=== PATIENT | male | born 1940 | race Caucasian/White ===

== ENCOUNTER 2022-11-06 05:59 | Emergency (ER) | payer MEDICARE, OTHER ==
[~2022-11-06] VITALS: Ht 188 cm; Wt 109.1 kg
[~2022-11-06 05:59] MED LIST: CYAN100070 PO; ESCI10TA PO; FLO0.4C PO; GINK120C PO; KRIL500C PO; MULT-1085 PO
[2022-11-06] MEDS ORDERED: levetiracetam inj 1,000 MG in normal saline 100ml IV soln 90 ML IV ONE (06:25)
[2022-11-06] MEDS ORDERED: levetiracetam inj 1,000 MG in normal saline 100ml IV soln 100 ML IV ONE (06:30)
[2022-11-06] MEDS ORDERED: cephalexin 250mg capsule PO ONE (06:35)
--- NOTE | 2022-11-06 06:35 | NUR ---
RN CALLED PHARM AND SAÚL SHAH BE PREPARED AND DELIVERED. [facility]ARM WILL DELIVER.
--- NOTE | 2022-11-06 06:43 | NUR ---
SEIZURE PADS APPLIED TO DAVID.
--- NOTE | 2022-11-06 06:52 | NUR ---
PT HAD 15CC serosanguineous OUTPUT FROM ESHA DRAIN.
[2022-11-06 08:12] LABS: BASOPHILS % (AUTO) 0.6 % (0-1); EOSINOPHILS # (AUTO) 0.2 X10'3 (0-0.9); EOSINOPHILS % (AUTO) 3.3 % (0-6); HEMATOCRIT 35.2 % (42.0-52.0); HEMOGLOBIN 11.9 g/dl (14.0-17.9); LYMPHOCYTES # (AUTO) 0.8 X10'3 (1.1-4.8); LYMPHOCYTES % (AUTO) 11.1 % (21-51); MEAN CORPUSCULAR HEMOGLOBIN 31.3 PG (27.0-31.0); MEAN CORPUSCULAR HGB CONC 33.8 g/dL (33.0-36.5); MEAN CORPUSCULAR VOLUME 92.8 FL (78-98); MEAN PLATELET VOLUME 7.4 FL (7.4-10.4); MONOCYTES # (AUTO) 0.5 X10'3 (0-0.9); MONOCYTES % (AUTO) 7.7 % (2-12); NEUTROPHILS # (AUTO) 5.2 X10'3 (1.8-7.7); NEUTROPHILS % (AUTO) 77.3 % (42-75); PLATELET COUNT 326 X10'3 (140-440); RED BLOOD COUNT 3.79 X10'6 (4.70-6.10); RED CELL DISTRIBUTION WIDTH 13.6 % (11.5-14.5); WHITE BLOOD COUNT 6.8 X10'3 (4.5-11.0)
[2022-11-06 08:15] LABS: CLARITY,URINE CLOUDY (Clear); COLOR,URINE RED (Yellow); GLUCOSE, URINE NEGATIVE (Neg); KETONES,URINE NEGATIVE (Neg); LEUKOCYTE ESTERASE ,URINE NEGATIVE (Neg); NITRITES, URINE NEGATIVE (Neg); OCCULT BLOOD,URINE LARGE (Neg); PROTEIN,URINE TRACE mg/dl (Neg); UROBILINOGEN,URINE 0.2 E.U/dL (0.2-1.0)
[2022-11-06 08:20] LABS: UA COLLECTION TYPE STRAIGHT CATH
[2022-11-06 08:22] LABS: RBC,URINE TNTC /HPF (0-2)
[2022-11-06 08:24] LABS: BACTERIA,URINE FEW /HPF (Neg); MUCUS STRANDS NONE SEEN /LPF (Neg); SQUAMOUS EPITHELIAL CELL,UR FEW /LPF (FEW)
[2022-11-06 08:26] LABS: ALANINE AMINOTRANSFERASE 26 U/L (12-78); ALBUMIN 2.3 G/DL (3.4-5.0); ALBUMIN/GLOBULIN RATIO 0.7 (1.1-1.5); ALKALINE PHOSPHATASE 69 IU/L (46-116); ANION GAP 4 (8-16); ASPARTATE AMINO TRANSFERASE 41 U/L (10-37); BILIRUBIN,TOTAL 0.3 MG/DL (0.1-1.0); BLOOD UREA NITROGEN 21 MG/DL (7-18); BUN/CREATININE RATIO 19.1 (10.0-20.0); CALCIUM 9.5 MG/DL (8.5-10.1); CHLORIDE 105 MMOL/L (99-107); GLUCOSE 114 MG/DL (70-104); LIPASE 78 U/L (73-393); MAGNESIUM 1.9 MG/DL (1.5-2.4); POTASSIUM 4.1 MMOL/L (3.5-5.1); SODIUM 141 MMOL/L (135-145); TOTAL CARBON DIOXIDE 31.9 MMOL/L (24-32); TOTAL PROTEIN 5.8 G/DL (6.4-8.2); eGFR 64 ML/MIN
[2022-11-06 08:39] LABS: PLATELET ESTIMATE NORMAL; TOTAL CELLS COUNTED 100
--- NOTE | 2022-11-06 08:42 | NUR ---
pt taken to ct.
--- NOTE | 2022-11-06 09:27 | NUR ---
RN CALLED REPORT TO [facility]. PER LIBERTAD THERE IS NO MD THERE TO REEVAL FOR CONT OF SEIZURE MEDS BUT SHE CAN CALL THE TYPE PHOTOGRAPHY SUPERVISOR MD TO HAVE SOMETHING ORD.
--- NOTE | 2022-11-06 09:28 | NUR ---
SY WILL BE TRANSPORTING THE PT AT 1100. RN WILL LEAVE IV IN PLACE UNTIL THAT TIME.
--- NOTE | 2022-11-06 09:37 | NUR ---
RN REQ WORK ORDER FOR SCANNER IN PT RM NOT WORKING.
[2022-11-06 10:20] VITALS: BP 125/82
== END 2022-11-06 10:15 | disposition home or self-care (01) ==
LOC: ER 06:00
DX: R31.9 Hematuria, unspecified (principal); G40.909 Epilepsy, unspecified, not intractable, without status epilepticus; E11.9 Type 2 diabetes mellitus without complications
CPT/HCPCS: 36415; 70450; 80053; 81001; 83690; 83735; 84484; 85007; 85025; 87088; 96374; 99285; J1953; J3490

== ENCOUNTER 2022-11-19 16:08 | Emergency (ER) | payer MEDICARE, OTHER ==
[~2022-11-19] VITALS: Ht 188 cm; Wt 127.3 kg
[2022-11-19 16:33] LABS: BASOPHILS % (AUTO) 0.5 % (0-1); EOSINOPHILS # (AUTO) 0.1 X10'3 (0-0.9); EOSINOPHILS % (AUTO) 1.1 % (0-6); HEMATOCRIT 37.6 % (42.0-52.0); HEMOGLOBIN 12.3 g/dl (14.0-17.9); LYMPHOCYTES # (AUTO) 1.2 X10'3 (1.1-4.8); LYMPHOCYTES % (AUTO) 20.5 % (21-51); MEAN CORPUSCULAR HEMOGLOBIN 29.9 PG (27.0-31.0); MEAN CORPUSCULAR HGB CONC 32.7 g/dL (33.0-36.5); MEAN CORPUSCULAR VOLUME 91.3 FL (78-98); MEAN PLATELET VOLUME 7.7 FL (7.4-10.4); MONOCYTES # (AUTO) 0.8 X10'3 (0-0.9); MONOCYTES % (AUTO) 13.9 % (2-12); NEUTROPHILS # (AUTO) 3.8 X10'3 (1.8-7.7); PLATELET COUNT 279 X10'3 (140-440); RED BLOOD COUNT 4.12 X10'6 (4.70-6.10); RED CELL DISTRIBUTION WIDTH 13.5 % (11.5-14.5); WHITE BLOOD COUNT 5.9 X10'3 (4.5-11.0)
[2022-11-19 16:54] LABS: ALANINE AMINOTRANSFERASE 15 U/L (12-78); ALBUMIN 2.6 G/DL (3.4-5.0); ALBUMIN/GLOBULIN RATIO 0.6 (1.1-1.5); ALKALINE PHOSPHATASE 81 IU/L (46-116); ANION GAP 8 (8-16); ASPARTATE AMINO TRANSFERASE 18 U/L (10-37); BILIRUBIN,TOTAL 0.3 MG/DL (0.1-1.0); BLOOD UREA NITROGEN 41 MG/DL (7-18); BUN/CREATININE RATIO 22.3 (10.0-20.0); CALCIUM 8.8 MG/DL (8.5-10.1); CHLORIDE 104 MMOL/L (99-107); CREATININE 1.84 MG/DL (0.60-1.10); GLUCOSE 113 MG/DL (70-104); POTASSIUM 3.5 MMOL/L (3.5-5.1); SODIUM 137 MMOL/L (135-145); TOTAL PROTEIN 7.2 G/DL (6.4-8.2); eGFR 35 ML/MIN
[2022-11-19 16:58] VITALS: BP 133/72
== END 2022-11-19 17:59 | disposition home or self-care (01) ==
LOC: ER 16:09
DX: R09.02 Hypoxemia (principal); E11.9 Type 2 diabetes mellitus without complications; N18.9 Chronic kidney disease, unspecified
CPT/HCPCS: 36415; 80053; 85025; 99283

== ENCOUNTER 2023-09-23 13:40 | Inpatient (IN) | payer MEDICARE, OTHER ==
[~2023-09-23] VITALS: Ht 185.4 cm; Wt 110.0 kg
[2023-09-23 15:29] LABS: BASOPHILS % (AUTO) 0.2 % (0-1); EOSINOPHILS # (AUTO) 0.2 X10'3 (0-0.9); EOSINOPHILS % (AUTO) 2.6 % (0-6); HEMATOCRIT 31.2 % (42.0-52.0); HEMOGLOBIN 10.2 g/dl (14.0-17.9); LYMPHOCYTES % (AUTO) 13.8 % (21-51); MEAN CORPUSCULAR HGB CONC 32.9 g/dL (33.0-36.5); MEAN CORPUSCULAR VOLUME 88.3 FL (78-98); MONOCYTES # (AUTO) 0.8 X10'3 (0-0.9); MONOCYTES % (AUTO) 11.3 % (2-12); NEUTROPHILS # (AUTO) 5.1 X10'3 (1.8-7.7); NEUTROPHILS % (AUTO) 72.1 % (42-75); PLATELET COUNT 240 X10'3 (140-440); RED BLOOD COUNT 3.53 X10'6 (4.70-6.10); RED CELL DISTRIBUTION WIDTH 15.4 % (11.5-14.5)
[2023-09-23 15:42] LABS: ALBUMIN 2.1 G/DL (3.4-5.0); ANION GAP 9 (8-16); BLOOD UREA NITROGEN 22 MG/DL (7-18); BUN/CREATININE RATIO 22.7 (10.0-20.0); CALCIUM 8.8 MG/DL (8.5-10.1); CHLORIDE 103 MMOL/L (99-107); CREATININE 0.97 MG/DL (0.60-1.10); GLUCOSE 113 MG/DL (70-104); MAGNESIUM 2.1 MG/DL (1.5-2.4); POTASSIUM 3.2 MMOL/L (3.5-5.1); SODIUM 135 MMOL/L (135-145); TOTAL CARBON DIOXIDE 22.9 MMOL/L (24-32); eCRCL 64 ML/MIN; eGFR 74 ML/MIN
[2023-09-23] MEDS: piperacillin/tazo 3.375gm/50ml 50 ML IV ONE (15:53)
[2023-09-23] MEDS ORDERED: iohexol 300mg/ml 100ml inj. ONE (16:40)
[2023-09-23 16:51] LABS: UA COLLECTION TYPE NON-SPECIFIED
[2023-09-23 16:53] LABS: CLARITY,URINE CLOUDY (Clear); COLOR,URINE YELLOW (Yellow)
[2023-09-23 16:54] LABS: GLUCOSE, URINE NEGATIVE (Neg); KETONES,URINE NEGATIVE (Neg); NITRITES, URINE POSITIVE (Neg); OCCULT BLOOD,URINE MODERATE (Neg); PROTEIN,URINE 30 mg/dl (Neg)
[2023-09-23 16:55] LABS: BILIRUBIN,URINE NEGATIVE (Neg); LEUKOCYTE ESTERASE ,URINE LARGE (Neg); UROBILINOGEN,URINE 0.2 E.U/dL (0.2-1.0)
[2023-09-23 16:58] LABS: SQUAMOUS EPITHELIAL CELL,UR NONE SEEN /LPF (FEW)
[2023-09-23 16:59] LABS: BACTERIA,URINE 3+ /HPF (Neg); WBC,URINE TNTC /HPF (0-4)
[2023-09-23] MEDS ORDERED: temazepam 15mg capsule PO PRN (21:00)
[2023-09-23] MEDS ORDERED: HYDROmorphone/PF 0.2 MG/ML SYRINGE IV PRN (21:35)
[2023-09-23] MEDS ORDERED: potassium Cl 40MEQ/1/2NS 520ml 520 ML IV PRN (21:35)
[2023-09-23] MEDS ORDERED: ondansetron/PF 4mg/2ml inj IV PRN (21:35)
[2023-09-23] MEDS ORDERED: acetaminophen 325mg tablet PO PRN (21:35)
[2023-09-23] MEDS ORDERED: HYDROmorphone inj. 0.5 MG/0.5 ML DISP.SYRIN IV PRN (21:35)
[2023-09-23] MEDS ORDERED: magnesium 4gm in 100ml NS 100 ML IV PRN (21:35)
[2023-09-23] MEDS ORDERED: magnesium 2GM in 50ml NS 50 ML IV PRN (21:35)
[2023-09-23] MEDS ORDERED: magnesium Cl slow-release 64mg tablet PO PRN (21:35)
[2023-09-23] MEDS ORDERED: magnesium hydroxide 30ml (MOM) UD suspension PO PRN (21:35)
[2023-09-23] MEDS ORDERED: potassium Cl 20 mEq SR tablet PO PRN (21:35)
[2023-09-23] MEDS ORDERED: mag hydrox/Alum hydrox/simeth 30ml oral suspension PO PRN (21:35)
[2023-09-23 22:03] LABS: C-REACTIVE PROTEIN 11.78 MG/DL (0.0-0.5)
[2023-09-23] MEDS: normal saline 1000ml 1,000 ML IV SCH (22:11)
[2023-09-23] MEDS ORDERED: iohexol 350MG/ML 100ml bottle IV ONE (23:00)
[2023-09-24] MEDS: piperacillin/tazo 3.375gm/50ml 50 ML IV SCH (00:49)
[2023-09-24] MEDS: PERFLUTREN PROTEIN-A MICROSPHR (Optison) 0.22 MG/ML 3ML VIAL IV ONE (07:45)
[2023-09-24] MEDS ORDERED: CefTRIAXone/D5W-Rocephin 1gm 50 ML IV SCH (08:00)
[2023-09-24] MEDS: K and/or MAG REPLACEMENT MC SCH (08:00)
[2023-09-24] MEDS: potassium Cl 20 mEq SR tablet PO PRN (08:52)
[2023-09-24] MEDS: multivitamins, therapeutics tablet PO SCH (08:52)
[2023-09-24] MEDS: heparin, porcine 5000 units/ml vial SQ SCH (08:53)
[2023-09-24 09:02] LABS: BASOPHILS % (AUTO) 0.3 % (0-1); EOSINOPHILS # (AUTO) 0.1 X10'3 (0-0.9); EOSINOPHILS % (AUTO) 2.6 % (0-6); HEMATOCRIT 32.6 % (42.0-52.0); HEMOGLOBIN 10.7 g/dl (14.0-17.9); LYMPHOCYTES # (AUTO) 0.9 X10'3 (1.1-4.8); LYMPHOCYTES % (AUTO) 16.5 % (21-51); MEAN CORPUSCULAR HEMOGLOBIN 29.3 PG (27.0-31.0); MEAN CORPUSCULAR VOLUME 88.8 FL (78-98); MEAN PLATELET VOLUME 7.1 FL (7.4-10.4); MONOCYTES # (AUTO) 0.6 X10'3 (0-0.9); MONOCYTES % (AUTO) 11.2 % (2-12); NEUTROPHILS % (AUTO) 69.4 % (42-75); PLATELET COUNT 265 X10'3 (140-440); RED BLOOD COUNT 3.67 X10'6 (4.70-6.10); RED CELL DISTRIBUTION WIDTH 15.2 % (11.5-14.5); WHITE BLOOD COUNT 5.7 X10'3 (4.5-11.0)
[2023-09-24 09:28] LABS: ALANINE AMINOTRANSFERASE 18 U/L (12-78); ALBUMIN 2.1 G/DL (3.4-5.0); ALBUMIN/GLOBULIN RATIO 0.4 (1.1-1.5); ALKALINE PHOSPHATASE 58 IU/L (46-116); ANION GAP 10 (8-16); ASPARTATE AMINO TRANSFERASE 13 U/L (10-37); BILIRUBIN,TOTAL 0.3 MG/DL (0.1-1.0); CALCIUM 9.2 MG/DL (8.5-10.1); CHLORIDE 106 MMOL/L (99-107); CREATININE 1.14 MG/DL (0.60-1.10); GLUCOSE 102 MG/DL (70-104); MAGNESIUM 2.2 MG/DL (1.5-2.4); POTASSIUM 3.2 MMOL/L (3.5-5.1); SODIUM 139 MMOL/L (135-145); TOTAL CARBON DIOXIDE 22.8 MMOL/L (24-32); TOTAL PROTEIN 6.9 G/DL (6.4-8.2); URIC ACID 4.1 MG/DL (3.5-7.2); eCRCL 55 ML/MIN; eGFR 61 ML/MIN
[2023-09-24 09:30] LABS: BLOOD UREA NITROGEN 20 MG/DL (7-18); BUN/CREATININE RATIO 17.5 (10.0-20.0)
[2023-09-24 09:42] LABS: HEMOGLOBIN A1C 6.4 % (4.5-6.2)
[2023-09-24 09:54] LABS: % IRON SATURATION 9 % (11-46); IRON 11 UG/DL (53-167); TOTAL IRON BINDING CAPACITY 124 UG/DL (259-388)
[2023-09-24] MEDS: triamcinolone acetonide 40mg/ml inj IM ONE (15:03)
[2023-09-24] MEDS: docusate sod 100mg capsule PO SCH (15:03)
[2023-09-24] MEDS ORDERED: APIX5TAB3 PO (16:02)
[2023-09-24] MEDS ORDERED: TOPI25TA15 PO (16:02)
[2023-09-24] MEDS ORDERED: MELA3CAP2 PO (16:02)
[2023-09-24] MEDS ORDERED: SENN-263 PO (16:02)
[2023-09-24] MEDS ORDERED: MULTIVITAMIN WITH MINERALS PO (16:02)
[2023-09-24] MEDS ORDERED: TOP100T PO (16:02)
[2023-09-24] MEDS ORDERED: HYDR-3973 PO (16:02)
[2023-09-24] MEDS ORDERED: SULF1TAB48 PO (16:02)
[2023-09-24] MEDS ORDERED: FLO0.4C PO (16:02)
[2023-09-24] MEDS ORDERED: DOCU100C40 PO (16:02)
[2023-09-24] MEDS ORDERED: CYAN100097 PO (16:02)
[2023-09-24] MEDS ORDERED: ACID1TAB2 PO (16:02)
[2023-09-24] MEDS ORDERED: ATOR40TA PO (16:02)
[2023-09-24 19:30] VITALS: RESP 16; O2SAT 98
[2023-09-24 22:00] VITALS: BP 109/65; PULSE 66; RESP 16; TEMP 97.9; O2SAT 100
[2023-09-24] MEDS: colchicine 0.6mg tablet PO SCH (23:48)
[2023-09-25 06:27] VITALS: BP 108/67; PULSE 81; RESP 16; TEMP 97.7; O2SAT 99
[2023-09-25 07:08] LABS: BASOPHILS % (AUTO) 0.3 % (0-1); EOSINOPHILS # (AUTO) 0.2 X10'3 (0-0.9); EOSINOPHILS % (AUTO) 3.1 % (0-6); HEMOGLOBIN 10.6 g/dl (14.0-17.9); LYMPHOCYTES # (AUTO) 0.8 X10'3 (1.1-4.8); LYMPHOCYTES % (AUTO) 14.6 % (21-51); MEAN CORPUSCULAR HEMOGLOBIN 29.2 PG (27.0-31.0); MEAN CORPUSCULAR HGB CONC 33.1 g/dL (33.0-36.5); MEAN CORPUSCULAR VOLUME 88.2 FL (78-98); MONOCYTES # (AUTO) 0.5 X10'3 (0-0.9); MONOCYTES % (AUTO) 8.8 % (2-12); NEUTROPHILS # (AUTO) 4.1 X10'3 (1.8-7.7); NEUTROPHILS % (AUTO) 73.2 % (42-75); PLATELET COUNT 292 X10'3 (140-440); RED BLOOD COUNT 3.62 X10'6 (4.70-6.10); RED CELL DISTRIBUTION WIDTH 15.3 % (11.5-14.5); WHITE BLOOD COUNT 5.6 X10'3 (4.5-11.0)
[2023-09-25 07:16] LABS: ALANINE AMINOTRANSFERASE 15 U/L (12-78); ALBUMIN 2.1 G/DL (3.4-5.0); ALBUMIN/GLOBULIN RATIO 0.4 (1.1-1.5); ALKALINE PHOSPHATASE 52 IU/L (46-116); ANION GAP 8 (8-16); ASPARTATE AMINO TRANSFERASE 16 U/L (10-37); BILIRUBIN,TOTAL 0.3 MG/DL (0.1-1.0); BLOOD UREA NITROGEN 17 MG/DL (7-18); BUN/CREATININE RATIO 15.7 (10.0-20.0); CALCIUM 9.3 MG/DL (8.5-10.1); CHLORIDE 109 MMOL/L (99-107); CHOL/HDL RATIO 2.9 (0.00-4.99); CHOLESTEROL 91 MG/DL (0-200); CREATININE 1.08 MG/DL (0.60-1.10); GLUCOSE 98 MG/DL (70-104); HDL CHOLESTEROL 31 MG/DL (35-60); LDL CHOLESTEROL 51 MG/DL (50-100); MAGNESIUM 2.3 MG/DL (1.5-2.4); POTASSIUM 3.7 MMOL/L (3.5-5.1); SODIUM 139 MMOL/L (135-145); TOTAL CARBON DIOXIDE 21.7 MMOL/L (24-32); TOTAL PROTEIN 6.9 G/DL (6.4-8.2); TRIGLYCERIDES 52 MG/DL (20-135); eCRCL 58 ML/MIN; eGFR 65 ML/MIN
[2023-09-25 08:00] VITALS: RESP 16; O2SAT 99
[2023-09-25 10:00] VITALS: BP 116/77; PULSE 72; RESP 15; TEMP 96.9; O2SAT 96
[2023-09-25] MEDS: lactose-reduced food (Ensure Enlive) - 237ml bottle PO SCH (13:01)
== END 2023-09-25 14:40 | DRG 553 ==
LOC: ER 13:40 → ED HOLD 21:41 → EDBEDREQ 22:44 → ORTHO 4S 09-24 19:05
PROVIDERS: ADMIT Internal Medicine Sleep Medicine; ATTEND Family Medicine
PROC: BP2N1ZZ Computerized Tomography (CT Scan) of Right Hand using Low Osmolar Contrast (ICD-10-PCS; principal; 2023-09-23)
PROC: B3251ZZ Computerized Tomography (CT Scan) of Bilateral Common Carotid Arteries using Low Osmolar Contrast (ICD-10-PCS; 2023-09-23)
PROC: B32G1ZZ Computerized Tomography (CT Scan) of Bilateral Vertebral Arteries using Low Osmolar Contrast (ICD-10-PCS; 2023-09-23)
PROC: B32R1ZZ Computerized Tomography (CT Scan) of Intracranial Arteries using Low Osmolar Contrast (ICD-10-PCS; 2023-09-23)
PROC: B3281ZZ Computerized Tomography (CT Scan) of Bilateral Internal Carotid Arteries using Low Osmolar Contrast (ICD-10-PCS; 2023-09-23)
DX: M10.9 Gout, unspecified (principal); G93.41 Metabolic encephalopathy; N17.0 Acute kidney failure with tubular necrosis; N30.00 Acute cystitis without hematuria; E46 Unspecified protein-calorie malnutrition; I69.351 Hemiplegia and hemiparesis following cerebral infarction affecting right dominant side; E11.65 Type 2 diabetes mellitus with hyperglycemia; Z66 Do not resuscitate; N18.2 Chronic kidney disease, stage 2 (mild); E11.22 Type 2 diabetes mellitus with diabetic chronic kidney disease; E87.6 Hypokalemia; D64.9 Anemia, unspecified; G89.29 Other chronic pain; M54.9 Dorsalgia, unspecified; F03.90 Unspecified dementia, unspecified severity, without behavioral disturbance, psychotic disturbance, mood disturbance, and anxiety; M19.041 Primary osteoarthritis, right hand; Z68.32 Body mass index [BMI] 32.0-32.9, adult; Z79.899 Other long term (current) drug therapy; Z95.0 Presence of cardiac pacemaker; Z83.3 Family history of diabetes mellitus
CPT/HCPCS: 36415; 70450; 70496; 70498; 71045; 73201; 80048; 80053; 80061; 81001; 82948; 83036; 83540; 83550; 83605; 83735; 84145; 84466; 84484; 84550; 85025; 85651; 86140; 87040; 87077; 87081; 87088; 87186; 92508; 92616; 93005; 93306; 97110; 97161; 99285; A6590; C1758; G0378; J1644; J2543; J3301; J3490; J7030; Q9967